=== PATIENT | male | born 1955 | race Two or more races ===

== ENCOUNTER 2020-10-11 10:50 | Emergency (ER) | payer OTHER ==
[~2020-10-11] VITALS: Ht 167.6 cm; Wt 70.5 kg
[2020-10-11 12:11] VITALS: BP 142/78
== END 2020-10-11 12:12 | disposition home or self-care (01) ==
LOC: EMS 10:56
DX: Z71.1 Person with feared health complaint in whom no diagnosis is made (principal); I10 Essential (primary) hypertension; F17.210 Nicotine dependence, cigarettes, uncomplicated
CPT/HCPCS: 99283; Z7502